=== PATIENT | male | born 1965 | race Caucasian/White ===

== ENCOUNTER 2022-10-15 18:03 | Outpatient (REF) | payer BC, SELFPAY ==
[2022-10-15 19:40] LABS: ALT 71 U/L (16-63); AST 34 U/L (15-37); Albumin 4.4 g/dL (3.4-5.0); Alkaline Phosphatase 76 U/L (46-116); Anion Gap 10.4 mmol/L (3-11); BUN 17 mg/dL (7-18); Bilirubin, Total 0.6 mg/dL (0.2-1.0); CO2 27.6 mmol/L (21.0-32.0); COMMENT (LAB VIEW ONLY) 88.56 mg/dL; CREATININE 0.8 mg/dL (0.70-1.30); Calcium 9.6 mg/dL (8.5-10.1); Calculated LDL 90 mg/dL (<100); Chloride 98 mmol/L (98-107); Cholesterol 168 mg/dL (<200); Estimated GFR 103.22 (mL/min/1.73m2); Glucose 123 mg/dL (74-106); HDL Cholesterol 60 mg/dL (40-60); Microalb ug/mg Crea 25.5 ug/mg Cr; Potassium 3.7 mmol/L (3.5-5.1); Sodium 136 mmol/L (136-145); Triglyceride 93 mg/dL (<150)
== END 2022-10-15 18:04 | disposition home or self-care (01) ==
LOC: NCHCN 18:03
PROVIDERS: Visit Provider Nurse Practitioner Family
DX: I10 Essential (primary) hypertension (principal); E11.9 Type 2 diabetes mellitus without complications; E78.2 Mixed hyperlipidemia
CPT/HCPCS: 80053; 80061; 82043; 82570

== ENCOUNTER 2023-04-15 17:49 | Outpatient (REF) | payer BC, SELFPAY ==
[2023-04-15 19:47] LABS: Hemoglobin A1C 7.6 % (<5.7)
[2023-04-15 19:58] LABS: ALT 59 U/L (16-63); AST 25 U/L (15-37); Albumin 4.5 g/dL (3.4-5.0); Alkaline Phosphatase 74 U/L (46-116); Anion Gap 10.7 mmol/L (3-11); BUN 20 mg/dL (7-18); Bilirubin, Total 0.6 mg/dL (0.2-1.0); CO2 29.3 mmol/L (21.0-32.0); Calcium 9.7 mg/dL (8.5-10.1); Chloride 99 mmol/L (98-107); Estimated GFR 87.78 (mL/min/1.73m2); Glucose 131 mg/dL (74-106); Potassium 3.9 mmol/L (3.5-5.1); Sodium 139 mmol/L (136-145); Total Protein 8.1 g/dL (6.4-8.2)
== END 2023-04-15 17:50 | disposition home or self-care (01) ==
LOC: NCHCN 17:49
PROVIDERS: Visit Provider Nurse Practitioner Family
DX: E11.9 Type 2 diabetes mellitus without complications (principal)
CPT/HCPCS: 80053; 83036

== ENCOUNTER 2023-10-15 18:17 | Outpatient (REF) | payer BC, SELFPAY ==
[2023-10-15 19:51] LABS: ALT 81 U/L (16-63); AST 38 U/L (15-37); Albumin 4.4 g/dL (3.4-5.0); Alkaline Phosphatase 67 U/L (46-116); Anion Gap 13.9 mmol/L (3-11); BUN 15 mg/dL (7-18); Bilirubin, Total 0.59 mg/dL (0.2-1.0); CO2 24.1 mmol/L (21.0-32.0); CREATININE 0.8 mg/dL (0.70-1.30); Calcium 9.1 mg/dL (8.5-10.1); Chloride 102 mmol/L (98-107); Estimated GFR 102.58 (mL/min/1.73m2); Glucose 117 mg/dL (74-106); Potassium 3.4 mmol/L (3.5-5.1); Sodium 140 mmol/L (136-145); Total Protein 7.7 g/dL (6.4-8.2)
[2023-10-15 21:01] LABS: Hemoglobin A1C 7.2 % (<5.7)
== END 2023-10-15 18:18 | disposition home or self-care (01) ==
LOC: NCHCN 18:17
PROVIDERS: Visit Provider Nurse Practitioner Family
DX: E11.9 Type 2 diabetes mellitus without complications (principal)
CPT/HCPCS: 80053; 83036

== ENCOUNTER 2024-01-15 17:00 | Outpatient (REF) | payer BC, SELFPAY ==
[2024-01-15 20:36] LABS: Hemoglobin A1C 7.2 % (<5.7)
[2024-01-15 20:40] LABS: ALT 33 U/L (16-63); AST 21 U/L (15-37); Albumin 4.3 g/dL (3.4-5.0); Alkaline Phosphatase 73 U/L (46-116); Anion Gap 12.2 mmol/L (3-11); BUN 18 mg/dL (7-18); Bilirubin, Direct 0.1 mg/dL (0.0-0.2); Bilirubin, Total 0.57 mg/dL (0.2-1.0); CO2 26.8 mmol/L (21.0-32.0); CREATININE 0.8 mg/dL (0.70-1.30); Calcium 9.3 mg/dL (8.5-10.1); Chloride 103 mmol/L (98-107); Estimated GFR 102.58 (mL/min/1.73m2); Glucose 114 mg/dL (74-106); Potassium 3.3 mmol/L (3.5-5.1); Sodium 142 mmol/L (136-145); Total Protein 7.7 g/dL (6.4-8.2)
== END 2024-01-15 17:01 | disposition home or self-care (01) ==
LOC: NCHCN 17:00
PROVIDERS: Visit Provider Nurse Practitioner Family
DX: E11.9 Type 2 diabetes mellitus without complications (principal); I10 Essential (primary) hypertension; R74.01 Elevation of levels of liver transaminase levels
CPT/HCPCS: 80048; 80076; 83036

== ENCOUNTER 2024-05-19 14:48 | Outpatient (REF) | payer BC, SELFPAY ==
[2024-05-19 20:54] LABS: ALT 34 U/L (16-63); AST 23 U/L (15-37); Albumin 4.4 g/dL (3.4-5.0); Alkaline Phosphatase 85 U/L (46-116); Anion Gap 14.4 mmol/L (3-11); BUN 13 mg/dL (7-18); Bilirubin, Total 0.7 mg/dL (0.2-1.0); CO2 23.6 mmol/L (21.0-32.0); CREATININE 0.8 mg/dL (0.70-1.30); Calcium 9.7 mg/dL (8.5-10.1); Calculated LDL 82 mg/dL (<100); Chloride 104 mmol/L (98-107); Cholesterol 161 mg/dL (<200); Estimated GFR 102.58 (mL/min/1.73m2); Glucose 131 mg/dL (74-106); HDL Cholesterol 66 mg/dL (>or=40); Sodium 142 mmol/L (136-145); Total Protein 7.9 g/dL (6.4-8.2); Triglyceride 67 mg/dL (<150)
[2024-05-19 21:17] LABS: Hemoglobin A1C 7.2 % (<5.7)
== END 2024-05-19 14:49 | disposition home or self-care (01) ==
LOC: NCHCN 14:48
PROVIDERS: PCP Nurse Practitioner Family; Visit Provider Nurse Practitioner Family
DX: E11.9 Type 2 diabetes mellitus without complications (principal); I10 Essential (primary) hypertension; E78.5 Hyperlipidemia, unspecified
CPT/HCPCS: 80053; 80061; 83036